=== PATIENT | female | born 1960 | race Caucasian/White ===

== ENCOUNTER 2023-01-20 14:35 | Outpatient (CLI) | payer OTHER | END 2023-01-20 14:36 | disposition home or self-care (01) | LOC: CSHMAMMO 14:35 | PROVIDERS: ATTEND Family Medicine | DX: Z12.31 Encounter for screening mammogram for malignant neoplasm of breast (principal); Z80.3 Family history of malignant neoplasm of breast; Z85.43 Personal history of malignant neoplasm of ovary | CPT/HCPCS: 77063; 77067 ==

== ENCOUNTER 2024-01-14 13:26 | Outpatient (CLI) | payer OTHER | END 2024-01-14 13:27 | disposition home or self-care (01) | LOC: CSHULT 13:26 | PROVIDERS: ATTEND Internal Medicine | DX: I42.7 Cardiomyopathy due to drug and external agent (principal); C56.1 Malignant neoplasm of right ovary; Z79.899 Other long term (current) drug therapy; Z79.60 Long term (current) use of unspecified immunomodulators and immunosuppressants; I34.1 Nonrheumatic mitral (valve) prolapse; I34.0 Nonrheumatic mitral (valve) insufficiency | CPT/HCPCS: 93306 ==

== ENCOUNTER 2024-02-10 13:11 | Outpatient (CLI) | payer OTHER | END 2024-02-10 13:12 | disposition home or self-care (01) | LOC: CSHRAD 13:11 | PROVIDERS: ATTEND Internal Medicine | DX: C56.1 Malignant neoplasm of right ovary (principal); R97.8 Other abnormal tumor markers; J90 Pleural effusion, not elsewhere classified; J98.11 Atelectasis | CPT/HCPCS: 71046 ==